=== PATIENT | female | born 1965 | race Caucasian/White ===

== ENCOUNTER → 2019-07-27 | Outpatient (CLI) | payer SELFPAY ==
[2019-07-27 09:14] LABS: ABSOLUTE BASOPHILS # (AUTO) 0.1 10^3/uL (0.0-0.2); ABSOLUTE EOSINOPHILS # (AUTO) 0.3 10^3/uL (0.0-0.6); ABSOLUTE LYMPHOCYTES (AUTO) 2.1 10^3/uL (0.5-4.7); ABSOLUTE MONOCYTES (AUTO) 0.4 10^3/uL (0.1-1.4); EOSINOPHILS % (AUTO) 5.6 % (0-6); HEMATOCRIT 42.4 % (36.0-47.0); HEMOGLOBIN 14.4 g/dL (12.0-15.5); LYMPHOCYTES % (AUTO) 35.6 % (13-45); MEAN CORPUSCULAR HEMOGLOBIN 32.6 pg (27.0-33.4); MEAN CORPUSCULAR HGB CONC 33.8 g/dL (32.0-36.0); MEAN CORPUSCULAR VOLUME 96 fl (80-97); MONOCYTES % (AUTO) 6.5 % (3-13); PLATELET COUNT 333 10^3/uL (150-450); RED BLOOD COUNT 4.41 10^6/uL (3.72-5.28); RED CELL DISTRIBUTION WIDTH 13.9 % (11.5-14.0); SEGMENTED NEUTROPHILS % (AUTO) 50.3 % (42-78); TOTAL CELLS COUNTED % (AUTO) 100 %
[2019-07-27 09:36] LABS: ALBUMIN 4.7 g/dL (3.5-5.0); ALKALINE PHOSPHATASE 75 U/L (38-126); ANION GAP 12 (5-19); ASPARTATE AMINO TRANSFERASE 21 U/L (14-36); BILIRUBIN,DIRECT 0.2 mg/dL (0.0-0.4); BILIRUBIN,TOTAL 0.6 mg/dL (0.2-1.3); BLOOD UREA NITROGEN 11 mg/dL (7-20); CALCIUM 9.9 mg/dL (8.4-10.2); CARBON DIOXIDE 28 mmol/L (22-30); CHLORIDE 102 mmol/L (98-107); CHOLESTEROL 223.35 mg/dL (0-200); GLUCOSE 76 mg/dL (75-110); POTASSIUM 4.1 mmol/L (3.6-5.0); TRIGLYCERIDES 117 mg/dL (<150)
[2019-07-27 09:47] LABS: DIRECT LDL 160 mg/dL (<100)
[2019-07-27 09:51] LABS: FREE T4 (FREE THYROXINE) 0.93 ng/dL (0.78-2.19)
[2019-07-27 10:04] LABS: THYROID STIMULATING HORMONE 1.44 uIU/mL (0.47-4.68)
== END ==
LOC: OD 08:30
PROVIDERS: ATTEND Internal Medicine
DX: Z00.00 Encounter for general adult medical examination without abnormal findings (principal)
CPT/HCPCS: 36415; 80053; 80061; 84439; 84443; 85025

== ENCOUNTER → 2020-03-03 | Outpatient (CLI) | payer OTHER ==
[2020-03-03 13:05] LABS: ABSOLUTE BASOPHILS # (AUTO) 0.1 10^3/uL (0.0-0.2); ABSOLUTE EOSINOPHILS # (AUTO) 0.2 10^3/uL (0.0-0.6); ABSOLUTE LYMPHOCYTES (AUTO) 1.9 10^3/uL (0.5-4.7); ABSOLUTE MONOCYTES (AUTO) 0.4 10^3/uL (0.1-1.4); ABSOLUTE NEUT (AUTO) 5.3 10^3/uL (1.7-8.2); BASOPHILS % (AUTO) 0.9 % (0-2); HEMATOCRIT 44.1 % (36.0-47.0); HEMOGLOBIN 14.7 g/dL (12.0-15.5); LYMPHOCYTES % (AUTO) 24.8 % (13-45); MEAN CORPUSCULAR HEMOGLOBIN 32.4 pg (27.0-33.4); MEAN CORPUSCULAR HGB CONC 33.3 g/dL (32.0-36.0); MEAN CORPUSCULAR VOLUME 97 fl (80-97); MONOCYTES % (AUTO) 4.5 % (3-13); PLATELET COUNT 248 10^3/uL (150-450); RED BLOOD COUNT 4.53 10^6/uL (3.72-5.28); RED CELL DISTRIBUTION WIDTH 13.1 % (11.5-14.0); SEGMENTED NEUTROPHILS % (AUTO) 67.8 % (42-78); TOTAL CELLS COUNTED % (AUTO) 100 %; WHITE BLOOD COUNT 7.8 10^3/uL (4.0-10.5)
== END ==
LOC: CCC 11:37
PROVIDERS: ATTEND Internal Medicine
DX: K62.5 Hemorrhage of anus and rectum (principal)
CPT/HCPCS: 36415; 85025

== ENCOUNTER → 2020-05-28 | Outpatient (CLI) | payer OTHER ==
--- NOTE | 2020-05-28 11:02 | RADIOLOGY REPORT (SQ) ---
EXAM DESCRIPTION: CT CHEST WITHOUT IMAGES COMPLETED DATE/TIME: 05/28/2020 8:29 am REASON FOR STUDY: R22.2 LOCALIZED SWELLING, MASS AND LUMP, TRUNK R22.2 LOCALIZED SWELLING, MASS AND LUMP, TRUNK COMPARISON: None. TECHNIQUE: CT scan performed of the chest without intravenous contrast. Images reviewed with lung, soft tissue and bone windows. Reconstructed coronal and sagittal MPR images reviewed. All images st ored on PACS. All CT scanners at this facility use dose modulation, iterative reconstruction, and/or weight based d osing when appropriate to reduce radiation dose to as low as reasonably achievable (ALARA). [facility]: Dose Right [facility]: CareDose [facility]: Dose Right [facility]: Teradose 4D [facility]: [employer] RADIATION DOSE: CT Rad equipment meets quality standard of care and radiation dose reduction techniq ues were employed. CTDIvol: 4.1 mGy. DLP: 159 mGy-cm. mGy. LIMITATIONS: No technical limitations. FINDINGS: LUNGS AND PLEURA: There is a 1.0 x 0.8 x 1.4 cm nodule within the right upper lobe (axial image 30, coronal reformat 48). There is a 0.6 x 0.5 x 0.5 cm nodule with central lucency within the right lower lobe. Additional scattered 2 to 4 mm nodular densities are seen throughout the lungs de monstrating predominantly the peripheral basilar distribution. Background of mild centrilobular emph ysematous changes. No focal consolidation. No pleural effusion. No pneumothorax. HILAR AND MEDIASTINAL STRUCTURES: Ectatic appearing ascending aorta. No mediastinal masses or lympha denopathy. HEART AND VASCULAR STRUCTURES: No aneurysm. No pericardial effusion. UPPER ABDOMEN: 2.2 cm left adrenal nodule. THYROID AND OTHER SOFT TISSUES: No masses. No adenopathy. BONES: No acute findings. No suspicious lytic or blastic osseous lesions. HARDWARE: None in the chest. OTHER: No other significant findings. IMPRESSION: 1. No abnormal findings of the superficial soft tissues overlying the sternum to correl ate to the patient's reported palpable abnormality. Consider dedicated sonographic evaluation for im proved characterization of these tissues. 2. Multiple pulmonary nodules noting a dominant 1.0 x 0.8 x 1.4 cm nodule within the right upper lob e. Differential considerations include septic emboli, mycobacterial/fungal infection, histiocytosis, metastatic disease. Recommend pulmonology referral. 3. 2.2 cm left adrenal nodule demonstrates diminished attenuation suggesting lipid rich adenoma. 4. Ectatic appearing thoracic aorta. TECHNICAL DOCUMENTATION: JOB ID: [id number] Quality ID # [id number]: Final reports with documentation of one or more dose reduction techniques (e.g., Au tomated exposure control, adjustment of the mA and/or kV according to patient size, use of iterative reconstruction technique) 2010 [employer]- All Rights Reserved Reading location - IP/workstation name: [email or web address]
== END ==
LOC: RAD 08:00
PROVIDERS: ATTEND Internal Medicine
DX: R91.8 Other nonspecific abnormal finding of lung field (principal); E27.8 Other specified disorders of adrenal gland
CPT/HCPCS: 71250

== ENCOUNTER → 2020-06-03 | Outpatient (CLI) | payer OTHER ==
--- NOTE | 2020-06-03 15:57 | RADIOLOGY REPORT (SQ) ---
EXAM DESCRIPTION: U/S CHEST IMAGES COMPLETED DATE/TIME: 06/03/2020 3:38 pm REASON FOR STUDY: R22.2 LOCALIZED SWELLING, MASS AND LUMP, TRUNK R22.2 LOCALIZED SWELLING, MASS AND LUMP, TRUNK COMPARISON: CT dated 05/28/2020 TECHNIQUE: Dynamic and static grayscale images acquired of the localized site of clinical concern an d recorded on PACS. Additional selected color Doppler and spectral images recorded. SITE OF CONCERN: Chest wall anterior to the sternum. LIMITATIONS: None. FINDINGS: SKIN AND SUBCUTANEOUS TISSUES: No masses. No fluid collections. No edema. No foreign risa s. DEEP SOFT TISSUES/MUSCLES: No masses. No fluid collections. No edema. VASCULAR: No increased or decreased vascularity. No occlusions. OTHER: No other significant finding. IMPRESSION: NO SOFT TISSUE MASS, FLUID COLLECTION, OR FOREIGN BODY. TECHNICAL DOCUMENTATION: JOB ID: [id number] 2010 [email or web address]- All Rights Reserved Reading location - IP/workstation name: [email or web address]
== END ==
LOC: RAD 15:11
PROVIDERS: ATTEND Internal Medicine
DX: R22.2 Localized swelling, mass and lump, trunk (principal)
CPT/HCPCS: 76604

== ENCOUNTER 2020-06-17 10:19 | Emergency (ER) | payer OTHER ==
--- NOTE | 2020-06-17 11:03 | ER Document Report ---
ED Medical Screen (RME) - General Stated Complaint: BODY WEAKNESS Time Seen by Provider: 06/17/20 10:50 Primary Care Provider: MARIAMA BOWMAN MD [Primary Care Provider] - Follow up as needed Mode of Arrival: Ambulatory Information source: Patient Notes: Patient presents stating primarily she is here to get an emergent PET scan. Patient states that her oncologist is out of [facility], although her primary doctor is at the [facility]. Patient states that because she does not have insurance and her oncologist advised her to come to this hospital to get her PET scan performed as she has an [facility] card that will make this test free for her. Patient states that her primary doctor advised her to come to the ER to get the PET scan because the holidays will delay her getting this test performed. Patient states that she has had some right sided neck muscle pain and some rectal bleeding off and on for 6 months with some nausea. Patient states all she wants to have done is have her emergent PET scan performed. I have greeted and performed a rapid initial assessment of this patient. A comprehensive ED assessment and evaluation of the patient, analysis of test results and completion of the medical decision making process will be conducted by additional ED providers. TRAVEL OUTSIDE OF THE [place] IN LAST 30 DAYS: No - Related Data Allergies/Adverse Reactions: Penicillins Allergy (Unknown, Unverified 10/19/11 17:42) Sulfa (Sulfonamide Antibiotics) Allergy (Unknown, Unverified 10/19/11 17:42) egg [Egg] Allergy (Verified 10/19/11 04:34) latex [Latex] Allergy (Verified 10/19/11 04:34) morphine [Morphine] Allergy (Verified 10/19/11 04:34) Past Medical History Neurological Medical History: Denies: Hx Seizures Past Surgical History: Reports: Hx Hysterectomy. Denies: Hx Pacemaker - Immunizations Hx Diphtheria, Pertussis, Tetanus Vaccination: Yes Physical Exam - Vital signs Vitals: Temp Pulse Resp BP Pulse Ox 98.4 F 77 18 149/76 H 100 06/17/20 10:30 06/17/20 10:30 06/17/20 10:30 06/17/20 10:30 06/17/20 10:30 - General General appearance: Appears well, Alert, Anxious Course - Vital Signs Vital signs: Temp Pulse Resp BP Pulse Ox 98.4 F 77 18 149/76 H 100 06/17/20 10:30 06/17/20 10:30 06/17/20 10:30 06/17/20 10:30 06/17/20 10:30 Doctor's Discharge - Discharge Referrals: MARIAMA BOWMAN MD [Primary Care Provider] - Follow up as needed
[2020-06-17 13:31] LABS: ABSOLUTE BASOPHILS # (AUTO) 0.1 10^3/uL (0.0-0.2); ABSOLUTE EOSINOPHILS # (AUTO) 0.1 10^3/uL (0.0-0.6); ABSOLUTE LYMPHOCYTES (AUTO) 2.2 10^3/uL (0.5-4.7); ABSOLUTE MONOCYTES (AUTO) 0.4 10^3/uL (0.1-1.4); ABSOLUTE NEUT (AUTO) 6.8 10^3/uL (1.7-8.2); BASOPHILS % (AUTO) 0.9 % (0-2); EOSINOPHILS % (AUTO) 1.2 % (0-6); HEMATOCRIT 42.5 % (36.0-47.0); HEMOGLOBIN 14.1 g/dL (12.0-15.5); LYMPHOCYTES % (AUTO) 22.6 % (13-45); MEAN CORPUSCULAR HEMOGLOBIN 31.4 pg (27.0-33.4); MEAN CORPUSCULAR HGB CONC 33.2 g/dL (32.0-36.0); MEAN CORPUSCULAR VOLUME 95 fl (80-97); MONOCYTES % (AUTO) 3.9 % (3-13); PLATELET COUNT 279 10^3/uL (150-450); RED CELL DISTRIBUTION WIDTH 13.3 % (11.5-14.0); SEGMENTED NEUTROPHILS % (AUTO) 71.4 % (42-78); TOTAL CELLS COUNTED % (AUTO) 100 %; WHITE BLOOD COUNT 9.5 10^3/uL (4.0-10.5)
--- NOTE | 2020-06-17 13:37 | ER Document Report ---
ED General - General Chief Complaint: Other Stated Complaint: BODY WEAKNESS Time Seen by Provider: 06/17/20 10:50 Primary Care Provider: VINOD ESPINOZA MD [ACTIVE STAFF] - Follow up as needed MARIAMA BOWMAN MD [Primary Care Provider] - Follow up as needed Mode of Arrival: Ambulatory TRAVEL OUTSIDE OF THE [place] IN LAST 30 DAYS: No - HPI Notes: Patient is a 55-year-old female with a past medical history of cervical cancer who presents at the referral of her family doctor to the ER for an urgent PET scan. Patient states she was diagnosed with cancer in her lungs on June 04 by her special librarian in [facility]. She states that the lungs were not the primary source of the cancer based on the special librarian evaluation. He wanted her to have a PET scan but stated it was too expensive and referred her to her family doctor at the [facility] because she has an [employer] medical card and it would be free. She called Dr. Bowman, her physician at the [facility] and stated she had been waiting too long for the PET scan. She last saw the pul external grinder tender on June 11 and still had not had a PET scan done. Dr. Bowman recommended that she come straight to the ER today and have an emergent PET scan. Patient states that she has had about 6 months of rectal bleeding. It is bright red on the toilet paper and when she wipes. She states it is painless. She states she has had a 12 pound weight loss in about 2 weeks. Patient states she has been eating. She denies any abdominal pain. No chest pain or shortness of breath. No fevers or chills. She is a smoker. - Related Data Allergies/Adverse Reactions: Penicillins Allergy (Unknown, Verified 06/17/20 11:00) Sulfa (Sulfonamide Antibiotics) Allergy (Unknown, Verified 06/17/20 11:00) egg [Egg] Allergy (Verified 06/17/20 11:00) latex [Latex] Allergy (Verified 06/17/20 11:00) morphine [Morphine] Allergy (Verified 06/17/20 11:00) Home Medications: denies Past Medical History - General Information source: Patient - Social History Smoking Status: Current Every Day Smoker Chew tobacco use (# tins/day): No Frequency of alcohol use: None Drug Abuse: None Family History: Malignancy Patient has homicidal ideation: No Neurological Medical History: Denies: Hx Seizures Past Surgical History: Reports: Hx Hysterectomy. Denies: Hx Pacemaker - Immunizations Hx Diphtheria, Pertussis, Tetanus Vaccination: Yes Review of Systems - Review of Systems Notes: CONSTITUTIONAL: No fever, fatigue or weight loss. SKIN: No rash. HENT: No congestion, ear pain, or sore throat. EYES: No recent vision problems or eye pain. CARDIOVASCULAR: No chest pain or edema. RESPIRATORY: No cough, shortness of breath, congestion, or wheezing. GASTROINTESTINAL: No abdominal pain, nausea, vomiting. Positive for occasional bright red blood per rectum GENITOURINARY: No dysuria. MUSCULOSKELETAL: No joint pain or swelling. NEUROLOGIC: No seizures. No headache, focal weakness or sensory changes. HEMATOLOGIC: No unusual bruising PSYCHIATRIC: No depression or anxiety. Physical Exam - Vital signs Vitals: Temp Pulse Resp BP Pulse Ox 98.4 F 77 18 149/76 H 100 06/17/20 10:30 06/17/20 10:30 06/17/20 10:30 06/17/20 10:30 06/17/20 10:30 - General General appearance: Appears well Notes: VITAL SIGNS: Within normal limits. GENERAL: No acute distress, non-toxic appearance. HEAD: Normal with no signs of head trauma. EYES: EOMI, conjunctiva normal, no discharge. EARS: Hearing grossly intact. NOSE: Normal. NECK: Normal range of motion, no tenderness, supple, no lymphadenopathy, No adenopathy, no JVD. CHEST: Clear breath sounds bilaterally. No wheezes, rales, or rhonchi. CARDIAC: Regular rate and rhythm. S1 and S2, without murmurs, gallops, or rubs. VASCULAR: No Edema. ABDOMEN: Normal and soft with no tenderness, no masses or pulsatile masses. GENITOURINARY: Normal, No tenderness MUSCULOSKELETAL: Good range of motion of all major joints. Extremities without clubbing, cyanosis or edema. NEUROLOGICAL: Alert and oriented x 3. No focal sensory or strength deficits. Speech normal. Follows commands appropriately. PSYCHIATRIC: Normal Affect, judgement and mood. SKIN: Normal appearance with no rashes or lesions. Course - Re-evaluation Re-evalutation: 06/17/20 15:04 Patient's lab work is unremarkable. I discussed with Dr. Espinoza from oncology. She states that we do not have 24/7 PET scan capabilities and cannot do them while patients are hospitalized. She recommended that her office calls her on Monday to set up care. She also recommended a social work consult for financial reasons as patient does not have insurance so her PET scan could be covered. Natalie reyes is very agreeable to this plan. Patient will be discharged home. Return precautions provided. 06/17/20 20:40 - Vital Signs Vital signs: Temp Pulse Resp BP Pulse Ox 98.0 F 65 16 138/64 H 99 06/17/20 15:33 06/17/20 15:33 06/17/20 15:33 06/17/20 15:33 06/17/20 15:33 - Laboratory Result Diagrams: 06/17/20 13:07 06/17/20 13:07 Laboratory results interpreted by me: 06/17/20 06/17/20 13:07 13:40 Calcium 10.5 H Total Protein 8.5 H Urine Blood SMALL H Discharge - Discharge Clinical Impression: Encounter for medical screening examination Condition: Stable Disposition: HOME, SELF-CARE Additional Instructions: Please follow-up with your family doctor. The oncology office will call you on Monday to set up an appointment. I will provide their number as well. Referrals: MARIAMA BOWMAN MD [Primary Care Provider] - Follow up as needed VINOD ESPINOZA MD [ACTIVE STAFF] - Follow up as needed
[2020-06-17 13:52] LABS: ALBUMIN 4.9 g/dL (3.5-5.0); ALKALINE PHOSPHATASE 80 U/L (38-126); ANION GAP 11 (5-19); ASPARTATE AMINO TRANSFERASE 27 U/L (14-36); BILIRUBIN,DIRECT 0.1 mg/dL (0.0-0.4); BILIRUBIN,TOTAL 0.4 mg/dL (0.2-1.3); BLOOD UREA NITROGEN 11 mg/dL (7-20); CALCIUM 10.5 mg/dL (8.4-10.2); CARBON DIOXIDE 25 mmol/L (22-30); CHLORIDE 105 mmol/L (98-107); CREATINE KINASE 82 U/L (30-135); GLUCOSE 86 mg/dL (75-110); POTASSIUM 4.6 mmol/L (3.6-5.0); TOTAL PROTEIN 8.5 g/dL (6.3-8.2)
[2020-06-17 14:05] LABS: APPEARANCE,URINE CLEAR; BILIRUBIN,URINE NEGATIVE (NEGATIVE); COLOR,URINE YELLOW; GLUCOSE, URINE NEGATIVE (NEGATIVE); KETONES,URINE NEGATIVE (NEGATIVE); LEUKOCYTE ESTERASE,URINE NEGATIVE (NEGATIVE); NITRITE,URINE NEGATIVE (NEGATIVE); PROTEIN,URINE NEGATIVE (NEGATIVE); UROBILINOGEN,URINE NEGATIVE mg/dL (<2.0)
[2020-06-17 15:45] VITALS: BP 138/64
== END 2020-06-17 15:44 | disposition home or self-care (01) ==
LOC: ER 10:19
DX: C78.00 Secondary malignant neoplasm of unspecified lung (principal); K62.5 Hemorrhage of anus and rectum; R63.4 Abnormal weight loss; F17.200 Nicotine dependence, unspecified, uncomplicated; Z85.41 Personal history of malignant neoplasm of cervix uteri; Z90.710 Acquired absence of both cervix and uterus; Z88.0 Allergy status to penicillin; Z88.2 Allergy status to sulfonamides; Z91.012 Allergy to eggs; Z88.6 Allergy status to analgesic agent; Z88.5 Allergy status to narcotic agent; Z91.040 Latex allergy status
CPT/HCPCS: 36415; 80053; 81001; 82550; 83690; 85025; 87086; 99282

== ENCOUNTER → 2020-06-30 | Outpatient (CLI) | payer OTHER ==
--- NOTE | 2020-07-01 11:36 | RADIOLOGY REPORT (SQ) ---
EXAM DESCRIPTION: PET CT SKULL/THIGH IMAGES COMPLETED DATE/TIME: 06/30/2020 12:03 pm REASON FOR STUDY: R91.8 OTHER NONSPECIFIC ABNORMAL FINDING OF LUNG FIELD R91.8 OTHER NONSPECIFIC AB NORMAL FINDING OF LUNG FIELD COMPARISON: 05/28/2020 CT chest, no prior pets RADIONUCLIDE AND DOSE: 9.97 mCi F18 FDG The route of agent administration: Intravenous FASTING BLOOD SUGAR: 98 mg/dl CONTRAST TYPE AND DOSE: No CT contrast given. TECHNIQUE: Blood glucose level was verified. Above dose of FDG was injected intravenously. 2-D seg mented attenuation correction images were obtained from the base of the skull to the midthighs. Nonc ontrast CT images were obtained for attenuation correction and fusion with emission images. CT image s were performed without oral or intravenous contrast and are not sensitive for parenchymal lesions. A series of overlapping emission PET images were obtained. Images reviewed and manipulated at [facility] work station by the radiologist. Images stored on PACS. LIMITATIONS: None. FINDINGS: HEAD AND NECK: Diffuse increased uptake within the supra infraclavicular fat compatible br own fat. No other areas of abnormal FDG uptake within the head neck. CHEST: Decreased size of the previously reported right upper lobe nodular opacity now measuring 6 mm, previously 10 mm. There is mild low level uptake (max SUV 1.3). Additional scattered ill-defined b ilateral nodular opacities have also decreased in size in conspicuity. No new nodules. No other are as of pathologic uptake within the thorax. ABDOMEN AND PELVIS: Background non focal hepatic uptake max SUV 3.1. Focus of increased activity aniyah ng the rectum without definite CT correlate (max SUV 6.9) (series 3, image 201). This may represent physiologic bowel activity although colonic lesion not entirely excluded. No other areas of patholog ic FDG uptake within the abdomen or pelvis. Expected physiologic activity within the gastrointestina l genitourinary systems. PROXIMAL LOWER EXTREMITIES: No areas of abnormal metabolic activity in the soft tissues of the lower extremities. BONES: No abnormal metabolic activity in the visualized skeleton. ADDITIONAL CT FINDINGS: No additional significant findings on the noncontrast CT images. OTHER: No other significant findings. IMPRESSION: 1. Decreased conspicuity of previously seen pulmonary nodules. Prior right upper lobe 1.0 cm nodule now measures 6 mm with low level uptake (max SUV 1.3) which is below background hepatic activity. Findings favor infectious/inflammatory process. 2. Focus of increased activity within the rectum (max SUV 6.9) without definite CT correlate. Findi ngs may represent physiologic gastrointestinal activity although colonic lesion is not entirely exclu ded. Recommend correlation with colonoscopic history. TECHNICAL DOCUMENTATION: JOB ID: [id number] 2010 [employer]- All Rights Reserved Reading location - IP/workstation name: [email or web address]
== END ==
LOC: RAD 08:50
PROVIDERS: ATTEND Internal Medicine
DX: R91.8 Other nonspecific abnormal finding of lung field (principal)
CPT/HCPCS: 78815; A9552